=== PATIENT | female | born 1945 | race Caucasian/White ===

== ENCOUNTER → 2017-01-15 | Outpatient (CLI) | payer MEDICARE ==
--- NOTE | 2017-01-15 10:28 | CARDIOVASCULAR REPORT ---
"Cerebrovascular Exam Indications: 433.10 Occlusion/stenosis of carotid artery without cerebral infarction. IMPRESSIONS 1. The bilateral vertebral arteries are patent with normal antegrade flow. 2. Study suggests 20-49%(higher end of scale)stenosis involving the right internal carotid artery and the left internal carotid artery. Disease progression from the study of 08-Jan-2010. History: Coronary artery disease. Risk factors: Hypertension. Diabetes mellitus. Hyperlipidemia. Carotid duplex study. Complete study and Doppler flow study including spectral analysis, color and otero scale imaging. Location: Vascular laboratory. Patient status: Outpatient. Tables: Arterial flow: + +--------+---------+ |Location |V sys |V ed | + +--------+---------+ |Right CCA - proximal|68.4cm/s|14.9cm/s | + +--------+---------+ |Right CCA - distal |68.4cm/s|21.2cm/s | + +--------+---------+ |Right ECA |88cm/s |---------| + +--------+---------+ |Right ICA - proximal|47.9cm/s|16.5cm/s | + +--------+---------+ |Right ICA - mid |66.8cm/s|23.6cm/s | + +--------+---------+ |Right ICA - distal |117cm/s |35.1cm/s | + +--------+---------+ |Right vertebral |43.2cm/s|---------| + +--------+---------+ |Left CCA - proximal |69.1cm/s|12.6cm/s | + +--------+---------+ |Left CCA - distal |48.7cm/s|12.6cm/s | + +--------+---------+ |Left ECA |69.1cm/s|---------| + +--------+---------+ |Left ICA - proximal |88.8cm/s|29.1cm/s | + +--------+---------+ |Left ICA - mid |87.2cm/s|28.3cm/s | + +--------+---------+ |Left ICA - distal |94.3cm/s|-26.7cm/s| + +--------+---------+ |Left vertebral |40.9cm/s|---------| + +--------+---------+ Velocity ratios: + + + + + + | |Right, V sys|Right, V ed|Left, V sys|Left, V ed| + + + + + + |Max ICA/dist CCA|1.71 |1.66 |1.94 |2.31 | + + + + + + (Report amended ) Electronically signed by: Vlad Angelo [id number]"
--- NOTE | 2017-01-16 16:50 | RADIOLOGY REPORT PS360 ---
PROCEDURE: 2-D M-mode and color Doppler study INDICATIONS FOR THE TEST: Chest pain COPD Heart Murmur Tobacco Smoking Palpitations Fatigue Syncope Edema HypertensionXDiabetes MellitusX Rheumatic Fever SOB BELTRE Obesity HyperlipidemiaX Family History HD Additional History CAD PATIENT INFORMATION HEIGHT: 66 WEIGHT:180 GENDER: Female B/P:120/70 2-D/M-MODE INTERPRETATION: 2-D MEASUREMENTS OBSERVED VALUES IN CMS Right Ventricular Dimension (RVDd) 2.7 Interventricular Septum (Thickness)(IVsd) 1.1 Left Ventricular Internal Dimensions(LVIDd) 5.5 Left Ventricular Posterior Wall (Thickness)(LVPWd) 1.0 Aortic Root 2.8 Aortic Cusp Separation 1.7 Left Atrial Dimensions (LAD) 4.2 2D 1. Left atrium is mildly enlarged, left ventricle is normal size, left ventricle wall thickness is upper limit of the normal, there is preserved left ventricular systolic function, visually estimated ejection fraction 55% with no obvious regional wall motion abnormality. 2. The right atrium is normal size, right ventricle is mildly enlarged with normal contractility. 3. The aortic valve is minimally thickened and fibrosed. 4. The mitral and tricuspid valve leaflets are minimally thickened. 5. The pulmonic valve is poorly visualized. 6. No significant pericardial effusion noted. DOPPLER INTERROGATION: Doppler interrogation of the aortic mitral and tricuspid valvular presence of mild mitral and tricuspid regurgitation, tricuspid and jet velocity insufficient for calculation of the right ventricular systolic pressure, grade 1 diastolic dysfunction seen with tissue Doppler evidence of raised left atrial pressure. CONCLUSION: 1. Mildly enlarged left atrium, normal left ventricular size, visually estimated ejection fraction 55% with no obvious regional wall motion abnormality, gated 1 diastolic dysfunction seen without tissue Doppler evidence of raised left atrial pressure. 2. Mildly enlarged right ventricle with normal contractility. 3. Mild mitral and tricuspid regurgitation. 4. No significant pericardial effusion noted.
== END ==
LOC: RT 09:12
DX: I25.10 Atherosclerotic heart disease of native coronary artery without angina pectoris (principal); I65.23 Occlusion and stenosis of bilateral carotid arteries; I73.9 Peripheral vascular disease, unspecified; E11.9 Type 2 diabetes mellitus without complications; E78.5 Hyperlipidemia, unspecified

== ENCOUNTER → 2017-01-29 | Outpatient (CLI) | payer MEDICARE ==
--- NOTE | 2017-01-30 09:21 | RADIOLOGY REPORT PS360 ---
[id number] VIEWS HISTORY: FX PROXIMAL HUMERUS Patient Age: 71 years: Female Ordering Physician: RONALD DRAPER MD TECHNIQUE: 3 views right shoulder COMPARISON :12/26/2016. Right shoulder. FINDINGS Progressive sclerosis and Healing throughout the region of the comminuted fracture through the neck of the humerus . This fracture passes more through the anatomical neck of the humerus and may be mildly impacted. 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 AC joint degeneration also noted. Scapula is intact. IMPRESSION: Healing fracture through the region of anatomical neck of right humerus. . Additional observations discussed in text
== END ==
LOC: RAD 08:51
DX: S42.201A Unspecified fracture of upper end of right humerus, initial encounter for closed fracture (principal)

== ENCOUNTER → 2017-02-24 | Outpatient (CLI) | payer MEDICARE ==
--- NOTE | 2017-02-28 08:46 | RADIOLOGY REPORT PS360 ---
DIG MAMM-SCREEN USAMA W/CAD CAD Screening ORDERING PHYSICIAN : Nathalie Prater APRN PATIENT AGE: 71 years GENDER: Female COMPARISON: Previous mammograms: December 2015, November 2014, April 2009 INDICATION: Routine screening no hormones. No new complaints. Noncontributory family history TECHNIQUE: Standard CC and MLO images were obtained. R2 CAD reviewed. FINDINGS: Overall Lower density breast with minimal fibroglandular elements bilaterally. I would note that the fibroglandular elements bilaterally are slightly more evident on today's study than previous exams. This may merely be due to technique. Actually today's studies are most similar to 2009 previous outside studies from [facility] mobile unit . No dominant suspicious mass nor suspicious calcification. Only faint minor arterial calcifications bilateral. .. RIGHT BREAST: No significant new findings. Follow-up in one year. LEFT BREAST:No significant new findings. Follow-up in one year. IMPRESSION: Stable bilateral mammogram with no significant new findings. BI-RADS CATEGORY: 1_Negative RECOMMENDED FOLLOWUP: 12M 12 MONTH FOLLOW-UP (A letter has been sent to the patient regarding results of the study.)
== END ==
LOC: RAD 01-06 08:30
DX: Z12.31 Encounter for screening mammogram for malignant neoplasm of breast (principal)
CPT/HCPCS: G0202